=== PATIENT | female | born 1970 | race African-American/Black ===

== ENCOUNTER 2020-01-05 08:58 | Emergency (ER) | payer OTHER ==
[~2020-01-05] VITALS: Ht 165.1 cm; Wt 111.6 kg
--- NOTE | 2020-01-05 09:00 | NUR ---
[id number] FRM 4 SEASONS FOR COUGH AND GENERALIZED BODYACHES X 1 WEEK , TO ER BED 3, HOOKED TO MONITOR, CHANGED TO HOSP GOWN, WARM BLANKET PROVIDED, PATIENT AOx 4, BREATHING EVEN AND UNLABORED, NAD NOTED. DR MCINTYRE AT BEDSIDE.
[2020-01-05 09:25] LABS: BASOPHILS # (AUTO) 0.1 /CMM (0.0-0.2); EOSINOPHILS % (AUTO) 0.8 % (0.0-6.0); HEMATOCRIT 40 % (33-45); HEMOGLOBIN 13.1 g/dL (11.5-14.8); LYMPHOCYTES # (AUTO) 2.5 /CMM (0.8-4.8); LYMPHOCYTES % (AUTO) 37.7 % (20.0-44.0); MEAN CORPUSCULAR HGB CONC 33 g/dl (31.0-36.0); MEAN CORPUSCULAR VOLUME 95 fL (82-100); MONOCYTES # (AUTO) 0.5 /CMM (0.1-1.30); MONOCYTES % (AUTO) 7.8 % (2.0-12.0); NEUTROPHILS # (AUTO) 3.5 /CMM (1.8-8.9); NEUTROPHILS % (AUTO) 52.7 % (43.0-81.0); PLATELET COUNT (AUTO) 260 /CMM (150-450); RED BLOOD CELL COUNT(AUTO) 4.18 MIL/uL (4.0-5.2); WHITE BLOOD COUNT (AUTO) 6.5 K/uL (4.3-11.0)
[2020-01-05] MEDS ORDERED: RISP0.2515 PO (09:27)
[2020-01-05] MEDS ORDERED: MULT-24 PO (09:27)
[2020-01-05] MEDS ORDERED: ACET-868 PO (09:27)
[2020-01-05] MEDS ORDERED: IBUP-1955 PO (09:27)
[2020-01-05] MEDS ORDERED: POLY15DR40 EACHEYE (09:27)
[2020-01-05] MEDS ORDERED: OXCA150T5 PO (09:27)
[2020-01-05] MEDS ORDERED: LORA-258 PO (09:27)
[2020-01-05] MEDS ORDERED: BENZ1TAB7 PO (09:27)
[2020-01-05] MEDS ORDERED: SENN-168 PO (09:27)
[2020-01-05] MEDS ORDERED: QUET25TA PO (09:27)
[2020-01-05] MEDS ORDERED: IV NS 0.9% 1,000 ML BAG IV ONE (09:30)
[2020-01-05 09:35] LABS: CALCIUM, SERUM 8.5 mg/dL (8.5-10.1); CARBON DIOXIDE 28 mmol/L (21-32); CHLORIDE 106 mmol/L (98-107); CREATININE 0.9 mg/dL (0.6-1.3); GLUCOSE 146 mg/dL (74-106); POTASSIUM 3.4 mmol/L (3.5-5.1); SODIUM SERUM 142 mmol/L (136-145); UREA NITROGEN, BLOOD 10 mg/dL (7-18)
[2020-01-05 09:50] LABS: ALANINE AMINOTRANSFERASE 48 U/L (12-78); ALBUMIN 3.3 g/dL (3.4-5.0); ALKALINE PHOSPHATASE 42 U/L (46-116); ASPARTATE AMINOTRANSFERASE 28 U/L (15-37); BILIRUBIN,DIRECT 0.1 mg/dL (0.0-0.2); BILIRUBIN,TOTAL 0.6 mg/dL (0.2-1.0); TOTAL PROTEIN, SERUM 7.5 g/dL (6.4-8.2)
--- NOTE | 2020-01-05 10:00 | NUR ---
URINE SAMPLE SENT TO LAB
[2020-01-05 10:15] LABS: APPEARANCE,URINE Clear (CLEAR); BILIRUBIN,URINE Negative (NEGATIVE); BLOOD, URINE Negative Ery/uL (NEGATIVE); COLOR,URINE Yellow (YELLOW); KETONES,URINE Negative (NEGATIVE); LEUKOCYTE ESTERASE ,URINE Trace (NEGATIVE); NITRITE, URINE Negative (NEGATIVE); PH,URINE 7.5 (5.0-8.0); PROTEIN,URINE Negative (NEGATIVE); UGLUCOSE Negative (NEGATIVE)
[2020-01-05 10:19] LABS: BACTERIA,URINE Few /HPF (None Seen); RBC,URINE NONE SEEN /HPF (0-2); SQUAMOUS EPITHELIAL CELL,UR Few /HPF (None Seen)
--- NOTE | 2020-01-05 11:15 | NUR ---
HUNG HUSSEIN [id number]#[id number] Addendum: 01/05/20 at 1128 by ED CANCELED
--- NOTE | 2020-01-05 11:24 | NUR ---
[facility] ETA 1200
--- NOTE | 2020-01-05 12:21 | NUR ---
IV removed. Catheter intact and site benign. Pressure and 4x4 applied to site. No bleeding noted. Patient picked up by [facility] [address] in stable condition. Written and verbal after care instructions given. Patient verbalizes understanding of instruction. Patient will be brought back to [facility]. Report given to Dianely[facility] of [facility]
[2020-01-05 13:06] VITALS: BP 123/70
== END 2020-01-05 12:20 ==
LOC: ER 09:00
DX: R05 Cough (principal); M79.18 Myalgia, other site; J44.9 Chronic obstructive pulmonary disease, unspecified; G89.4 Chronic pain syndrome; F20.9 Schizophrenia, unspecified; F41.9 Anxiety disorder, unspecified; F17.200 Nicotine dependence, unspecified, uncomplicated; Z88.0 Allergy status to penicillin; Z79.899 Other long term (current) drug therapy
CPT/HCPCS: 36415; 71045; 80048; 80076; 81001; 82550; 83605; 84145; 84484; 85025; 85730; 87040 ×2; 87077; 87086; 87804; 93005; 99285; 99406; J7030; 81000-TC